=== PATIENT | male | born 1970 | race Caucasian/White ===

== ENCOUNTER 2018-05-12 06:33 | Day surgery (SDC) | payer OTHER ==
[2018-05-11 17:47] VITALS: Ht 175.3 cm; Wt 85.5 kg
[~2018-05-12] VITALS: Ht 175.3 cm; Wt 85.5 kg
[~2018-05-12 06:33] MED LIST: BUPIVACAINE 0.5% 30 ML VIAL INJ ONE; CEPH500C PO; CLOP300T15 PO; DIVA-75 PO; HYDR-3980 PO; LORA1TAB PO; METO10TA3 PO; MORP15TA92 PO; SUMA50TA2 PO
[2018-05-12] MEDS ORDERED: SEVOFLURANE 15 MIN ONE (07:00)
[2018-05-12] MEDS ORDERED: CEFAZOLIN 1 GM INJ ONE (07:00)
[2018-05-12] MEDS ORDERED: ROCURONIUM 50 MG INJ ONE (07:31)
[2018-05-12] MEDS ORDERED: MIDAZOLAM 1 MG/ML 2 ML INJ ONE (07:31)
[2018-05-12] MEDS ORDERED: PROPOFOL 100 ML ONE (07:31)
[2018-05-12] MEDS ORDERED: FENTAnyl 50 MCG/ML VIAL ONE ×2 (07:31→08:35)
[2018-05-12] MEDS ORDERED: LIDOCAINE 100 MG SYRINGE ONE (07:31)
[2018-05-12] MEDS ORDERED: ONDANSETRON 4 MG INJ ONE (07:32)
[2018-05-12] MEDS ORDERED: SUGAMMADEX SODIUM 200 MG/2 ML VIAL IV ONE (07:32)
[2018-05-12] MEDS ORDERED: DEXAMETHASONE 4 MG/ML 5 ML INJ ONE (07:32)
[2018-05-12 07:33] VITALS: BP 112/79; PULSE 60; RESP 18
[2018-05-12] MEDS ORDERED: NEOMYC/POLYMYX/BACIT 30 GM OINT ONE (07:39)
[2018-05-12] MEDS ORDERED: BUPIVACAINE 0.5% (SDV) 30 ML INJ ONE (07:39)
--- NOTE | 2018-05-12 07:42 | PREAC ---
Date/Time of Note Date/Time of Note DATE: 05/12/18 TIME: 07:41 Anesthesia Eval and Record Evaluation Time Pre-Procedure Interview DATE: 05/12/18 TIME: 07:41 Age 47 Sex male NPO: 8 hrs Preoperative diagnosis hydrocele / spermatocele Planned procedure bilateral hydrocelectomy / epididymectomy / left spermatocele Past Medical History Past Medical History: Includes Cardio: HTN Pulm: Smoking Hx Neuro: CVA, Seizure disorder Recreational drugs: Marijuana Surgery & Anesthesia Issues No known issue Meds Anticoagulation: No Beta Maddison within 24 hr: No Reason Beta Maddison not given: Pt. not on B-Maddison Reported Medications Sumatriptan Succinate* (Imitrex*) 50 Mg Tablet, 50 MG PO BID PRN for MIGRAINE HEADACHE, TAB May repeat after 2 hours if needed; MAX 200 mg/24 hours 05/11/18 Metoclopramide Hcl* (Metoclopramide Hcl*) 10 Mg Tablet, 10 MG PO Q6H PRN for NAUSEA AND OR VOMITING, TAB 05/11/18 Lorazepam* (Lorazepam*) 1 Mg Tablet, 1 MG PO HS, #30 TAB 05/11/18 Morphine Sulfate* (Ms Contin*) 15 Mg Tablet.sa, 15 MG PO DAILY, TAB 05/11/18 Hydrocodone/Acetaminophen ([place] 10-325 Tablet) 1 Each Tablet, 1 EACH PO, TAB 05/11/18 Cephalexin* (Cephalexin*) 500 Mg Capsule, 500 MG PO Q6, #28 CAP 05/11/18 Clopidogrel Bisulfate* (Plavix*) 300 Mg Tab, 75 MG PO ONCE, TAB 05/11/18 Divalproex Sodium* (Depakote ER*) 500 Mg Tabsr, 500 MG PO BID, #30 TAB.SA 05/11/18 Current Medications Cefazolin Sodium 50 ml @ 100 mls/hr PRE-OP ONCE IVPB ; Start 05/12/18 at 09:00; Stop 05/12/18 at 09:29 Meds reviewed: Yes Allergies Coded Allergies: tramadol (Unverified Allergy, Unknown, 05/11/18) Allergies Reviewed: Yes Labs/Studies Labs Reviewed: Reviewed by anesthesiologist test: N/A Pre-procedure Exam Last vitals Vital Signs Date Temp Pulse Resp B/P (MAP) Pulse Ox O2 O2 Flow FiO2 Time Delivery Rate 05/12/18 97.0 60 18 112/79 96 Room Air 07:33 (90) Airway: Adequate mouth opening Mallampati: Mallampati I Teeth: Abnormal (chipped top left tooth front) Lung: Normal Heart: Normal ASA Physical Status ASA physical status: 2 Emergency: None Planned Anesthetic General/MAC: ETT Pre-operative Attestations Prior to commencing anesthesia and surgery, the patient was re-evaluated, there was verification of: *The patient's identity *The results of appropriate recent lab work and preoperative vital signs *The above evaluation not changing prior to induction *Anesthetic plan, risk benefits, alternative and complications discussed with patient/family; questions answered; patient/family understands, accepts and wishes to proceed. TRISTEN LEZAMA May 12, 2018 07:42
[2018-05-12] MEDS ORDERED: ONDANSETRON 4 MG INJ IV PRN (08:00)
[2018-05-12] MEDS ORDERED: LABETALOL HCL 20MG INJ IV PRN (08:00)
[2018-05-12] MEDS ORDERED: HYDROmorphONE 1 MG/5 ML IV SYRINGE IV PRN (08:00)
[2018-05-12] MEDS ORDERED: MEPERIDINE 25 MG INJ IV PRN (08:00)
[2018-05-12] MEDS ORDERED: METOCLOPRAMIDE 10 MG INJ IV PRN (08:00)
[2018-05-12] MEDS ORDERED: hydrALAzine 20 MG INJ IV PRN (08:00)
[2018-05-12] MEDS ORDERED: FENTAnyl 50 MCG/ML VIAL IV PRN ×2 (08:00)
[2018-05-12] MEDS ORDERED: PROVENTIL HFA 6.7GM INHALER ONE (08:02)
[2018-05-12] MEDS ORDERED: CEFAZOLIN 1 GM/50 ML (PMX) 50 ML IVPB ONE (09:00)
--- NOTE | 2018-05-12 09:18 | HP ---
DATE OF ADMISSION: 05/12/2018 CHIEF COMPLAINT: Bilateral testicular pain. HISTORY OF PRESENT ILLNESS: This is a 47-year-old male with greater than 5-year history of chronic t esticular pain. He has been on narcotics for this problem. He reports he has reached the end of his rope with his pain; it is very much bothering him. He has seen multiple specialists. He reports he has been given narcotics, anti-inflammatories. He has had multiple courses of antibiotic treatment. However, he continues to have a pain in both testicles. He has undergone a prior workup which has revealed bilateral hydroceles. The hydroceles are septated. Furthermore, there is a concern about a chronic epididymitis and epididymal cysts. Patient reports that on the left side. He has pain along the back of his testis. The pain is worse if he sits for prolonged periods. The pain is also worse if the testis is touched. However, there i s a constant nagging, aching pain in that left testis. On the right side the patient also has right- sided testicular pain. Again, the pain is worse if he sits or if he squeezes his legs or if the test is is touched. On the right side the pain also radiates up toward the inguinal area. Despite being given pain medications, having had anti-inflammatories and antibiotics, he continues to have this emily n. The patient is also narcotic dependent. PAST MEDICAL HISTORY: Anxiety, depression, history of previous TIA in 2015. PAST SURGICAL HISTORY: The patient has had multiple lower extremity, wrist and facial orthopedic surg eries. GENITOURINARY: He has not had any genitourinary surgeries and has not had any intra-abdominal surger ies. ALLERGIES: TRAMADOL. SOCIAL HISTORY: The patient smokes half a pack of cigarettes per day. He reports he does not drink alcohol or use drugs. FAMILY HISTORY: Noncontributory, however he reports that there are scattered people in his family wi th diabetes and hypertension. REVIEW OF SYSTEMS: CONSTITUTIONAL: No fevers, no chills, no change in appetite, weight gain or weight loss. HEENT: No loss of hearing, no ear or sinus pain. No rhinorrhea, nosebleed or sore throat. CARDIOVASCULAR: No chest pain, no shortness of breath or heart palpitations. RESPIRATORY: No cough, no phlegm production or visible hemoptysis. GASTROINTESTINAL: No abdominal pain, no nausea or vomiting, no diarrhea. PSYCHIATRIC: The patient has baseline anxiety and depression. As I was interviewing him today again about his testicles, he became more and more nervous and anxious over his situation. HEMATOLOGIC AND LYMPHATIC: No known bleeding problems. No easy bruising. No lymph node enlargement . Patient reports he may have a blood clotting disorder. NEUROLOGIC: Patient reports he has had numbness and tingling. MEDICATIONS: 1. Depakote. 2. Clonidine. 3. Gabapentin. 4. Ativan. 5. [place]. 6. Plavix (on hold). PHYSICAL EXAMINATION: CONSTITUTIONAL: The patient appears to be in mild to moderate acute distress and appears anxious. GASTROINTESTINAL: Abdomen soft, normal bowel sounds, nondistended, nontender. Hernia exam none note d. Liver and spleen normal. GENITOURINARY: Kidneys, no CVA tenderness. Bladder, no fullness. Penis, no deformity, no lesions, no scarring. Scrotum no lesions, no scarring, no cysts; however scrotum was bilaterally enlarged from the appearance of a hydrocele or fluid collection within the scrotum. Testes descended bilaterally. Testes are moderately tender when the testes are touch bilaterally. The patient jumps and gets mor e tense and says that it hurt, that they are very painful. Bilateral fluid collections around testis also palpated. Epididymis bilaterally are thickened, hard and very tender to palpation. Upon palpa tion of the epididymides, the patient becomes very tense and screams in pain. Urethral meatus normal in size and location. ASSESSMENT: 1. Bilateral hydroceles. 2. Cyst of the epididymis. 3. Bilateral chronic epididymitis. RECOMMENDATIONS: I have spoken with the patient in detail about the natural history biology of testi cular pain and chronic epididymitis/hydroceles. Patient's ultrasound also reveals septations in the hydrocele. The patient understands that his choices include, but not limited to, hydrocelectomy, hyd rocelectomy plus epididymectomy, hydrocelectomy plus epididymal cyst removal or continued pain manage ment, possible neurolysis. I have discussed the pros and cons of these various treatment options wit h the patient. He is requesting to undergo hydrocelectomy and removal of both of his epididymides. He reports that he is fed up with the pain that he has and he would like to undergo this procedure to see if it helps him with his pain. I have also explained to him that if the left epididymis appears to be normal, but only has a spermatocele, then we may elect to perform a spermatocelectomy. Bharat albrecht, the patient is more inclined to, however, the patient would like to have epididymis completely rem blanquita. Plan for patient will be bilateral hydrocelectomy and bilateral epididymectomy. This procedure has b een explained to the patient in detail. Risks and benefits have been discussed. He understands the risks include but not limited to infection, bleeding, damage to adjacent structures, heart problems, lung problems, possibility of need for further surgery, DVT, PE, KS, CVA, nonresolution of symptoms, recurrence of symptoms, need for other treatments, need for other surgeries, continued testicular emily n, worsening of his testicular pain, testicular atrophy, loss of bilateral testes, infertility. The patient also understands that he will no longer have any sperm. He reports that he does not want to have any more children at this point. He also understands the scrotum will become very swollen and i ndurated for about 8 weeks, and he anticipates that. All the patient's questions have been answered, no guarantees given. The patient would like to proceed. Dictated By: DAYTON MCCORMACK MD, SR/MINAL Conf#: [id number] DID#: [id number]
[2018-05-12 10:15] VITALS: BP 146/73; PULSE 83; RESP 17
[2018-05-12] MEDS ORDERED: BUPIVACAINE 0.5% 30 ML VIAL INJ ONE (10:15)
--- NOTE | 2018-05-12 10:19 | PAC ---
Date/Time of Note Date/Time of Note DATE: 05/12/18 TIME: 10:19 Post-Anesthesia Notes Post-Anesthesia Note Last documented vital signs Vital Signs Date Temp Pulse Resp B/P (MAP) Pulse Ox O2 O2 Flow FiO2 Time Delivery Rate 05/12/18 97.0 60 18 112/79 96 Room Air 07:33 (90) Activity: WNL Respiratory function: WNL Cardiovascular function: WNL Mental status: Baseline Pain reasonably controlled: Yes Hydration appropriate: Yes Nausea/Vomiting absent: Yes TRISTEN LEZAMA May 12, 2018 10:19
--- NOTE | 2018-05-12 10:19 | SIPON ---
Date/Time of Note Date/Time of Note DATE: 05/12/18 TIME: 10:17 Operative Report Preoperative Diagnosis Bilateral hydroceles Bilateral chronic epididymitis Bilateral testis pain Postoperative Diagnosis Same Operation/Procedure Performed Bilateral hydrocelectomy Bilateral epididymectomy Surgeon see signature line congressional assistant none Anesthesia: general Estimated blood loss: 0 - 10 ml's Transfusion Required none Specimen Right and Left epididymis + Vas Right and left hydrocele sacs Grafts/Implants none Complications none DAYTON MCCORMACK May 12, 2018 10:19
--- NOTE | 2018-05-12 10:21 | PDOCDIS ---
Discharge Instructions DIAGNOSIS Discharge Diagnosis bilateral chronic epididymitis and bilateral hydroceles CONDITION [id number] Patient Condition: Wmoho0d Good HOME CARE INSTRUCTIONS: [id number] Diet Instructions: Ynjib0t Regular ACTIVITY: [id number] Activity Restrictions: [id number] Slowly Increase Activity No Sexual Activity Do not Drive [id number] Bathing Restrictions: [id number] Shower Otiag8Ln Activity Restrictions [id number] Ok to shower in two days and Comment: get wound wet DAYTON MCCORMACK May 12, 2018 10:21
[2018-05-12 10:26] VITALS: BP 141/82; PULSE 70; RESP 17
[2018-05-12] MEDS: HYDROmorphONE 1 MG/5 ML IV SYRINGE IV PRN ×3 (10:29→11:50)
[2018-05-12 10:31] VITALS: BP 146/73; PULSE 76; RESP 17
[2018-05-12 11:00] VITALS: BP 136/73; PULSE 75; RESP 16
--- NOTE | 2018-05-12 11:38 | OPR ---
DATE OF OPERATION: 05/12/2018 SURGEON: Dayton Hidalgo MD COLLECTION TECHNICIAN: None. PREOPERATIVE DIAGNOSES: 1. Bilateral chronic epididymitis. 2. Bilateral hydroceles. 3. Bilateral testicular pain. POSTOPERATIVE DIAGNOSES: 1. Bilateral chronic epididymitis. 2. Bilateral hydroceles. 3. Bilateral testicular pain. OPERATION PERFORMED: 1. Bilateral hydrocelectomy. 2. Bilateral epididymectomy. INDICATIONS FOR PROCEDURE: This patient has a history of chronic bilateral testicular pain. He is s cheduled to undergo the above said procedure. The procedure has been explained to the patient in det ail. Risk and benefits have been discussed. All of his questions have been answered, no guarantees given. He would like to proceed. FINDINGS: Bilateral hydroceles were encountered on the left side, the patient had a septated hydroce le. The epididymides bilaterally were thickened and slightly enlarged. The bilateral epididymides w ere removed completely with a tail of vas deferens. Extreme care was taken to maintain the blood sup ply to bilateral testes. PROCEDURE IN DETAIL: The patient was brought to the operating room, underwent general anesthesia. H e was kept in a supine position. Abdomen, perineum and genitalia were prepped and draped in usual st erile fashion. A cord block was initially given with 5 mL of 0.5% Marcaine in each spermatic cord at the inguinal canal. A longitudinal incision was made along the median raphe. Dissection was angela d down onto the dartos layer. The right dartos was opened longitudinally. Dissection was then joni ed down onto the hydrocele sac. The right hydrocele sac was identified, it was opened and clear flui d was drained, about 75-100 mL of fluid was drained from the right hydrocele. The testis was deliver ed. The hydrocele sac was then further opened. The testicle was examined. The testis appeared to b e normal. The right epididymis was then palpated. It was thickened and slightly enlarged. The bloo d supply to the testicle was also identified. At this point, the tunica over the epididymis was open ed near the head of the epididymis. Dissection was then carried down onto the junction of the epidid ymis to the testis. This was carefully dissected. The head of the epididymis was then was then diss ected off the testicle. Decision was then carried to the mid portion of the epididymis. The epididy mis was further lifted off the testis. The edges of the epididymis were carefully dissected away fro m the blood supply to the testis. At all times, the blood supply was kept in view. Blood supply was kept intact as the head and the mid portion of the body of the epididymis were dissected off the mes enteric supply of the testis. Dissection was then carried toward the lower pole of the epididymis. Once this was done, the vas deferens was palpated. The tissues over the vas deferens were then opene d through the hydrocele sac. The vas deferens was brought up and skeletonized. Next, 2 clamps were placed on the vas deferens. The vas deferens was then divided. The distal portion of the vas was th en cauterized. The vas was then suture ligated using a 3-0 Vicryl suture. Another 3-0 suture was al so placed around the vas. This obtained excellent hemostasis. At this point, the proximal portion of the vas which would connect to the epididymis was identified. The vas was then further dissected through the hydrocele sac toward the epididymis. As this was don e, the paul-vas tissues as well as the paul-epididymal tissues were carefully dissected again taking care not to injure the blood supply to the testis. At this point, residual attachments of the epidid ymis were taken off the testis. The epididymis and a portion of the vas deferens were then completel y excised off the right testis. This was sent to pathology as right epididymis and vas deferens en b loc. Attention was then paid to the hydrocele sac. The excess hydrocele sac was then excised, again takin g care not to injure the blood supply to the testis. This was sent to pathology as right hydrocele s ac. Next, the remainder of the hydrocele sac was everted onto itself. The edges were then sutured a gainst each other using a 3-0 Vicryl interrupted sutures. Care was taken not to strangulate the bloo d supply to the testis. Testis was reexamined and appeared to be have excellent blood supply. It wa s pink. The tunica albuginea was intact. The right hemiscrotum and the contents and the dartos laye r were all irrigated with saline. The wound was carefully examined. The testis as well as the sperm atic cord were carefully examined. There was no evidence of bleeding. The testis was then placed in its normal anatomic position within the scrotum. The dartos layer was then closed using 3-0 Vicryl running suture. Attention was then paid to the left side. The exact same procedure was then performed on the left si de. The dartos layer was opened longitudinally. Hydrocele sac was opened. On the left side, the hy drocele sac was multi-septated and the initial hydrocele sac was opened and about 75 to 100 mL of guevara ar yellow fluid was drained. Next, a secondary hydrocele sac was opened and another 25 mL were drain ed from this area. The 2 sacs were then connected to each other. At this point, the hydrocele sac h ad been well opened enough to be able to deliver the testis. The left testis was examined. It appeared to be normal. The left epididymis also appeared to be thi ckened and slightly enlarged. The head of the epididymis was then carefully dissected off the testic le. The tunica over the epididymis was opened. The epididymis was dissected off the spermatic cord, taking care not to injure the blood supply to the left testis. Dissection was then carried towards the mid portion of the epididymis. was lifted off the testis in this fashion. Next, the vas de ferens was dissected and was isolated, skeletonized. The vas deferens was clamped. The vas was then divided. The lumen was cauterized and the stump was suture ligated using 3-0 Vicryl suture as well as a free 3-0 suture. The distal vas was then dissected toward the lower pole of the epididymis. Di ssection was carried in this fashion until the connection of the vas to the epididymis was identified . The epididymis was then further dissected off the testis. The attachment of the epididymis and th e lower pole was pedicalized. This was clamped and the epididymis was divided off the testis. The a ttached portion was then sutured with a 3-0 Vicryl on the testis side. This was also performed on th e right side at the point of attachment of the epididymis to the testis. At this point, the epididym is had been completely removed. This was sent to pathology as left epididymis and vas deferens en b loc. Excess hydrocele sac was then excised. The septated portion was also excised. This was sent to path ology as left hydrocele sac. The remainder of the sac was then everted onto itself and the edges wer e sutured using 3-0 Vicryl interrupted sutures, taking care not to strangulate the blood supply to th e testis. Once this was done, the testis as well as the left hemiscrotum and the contents and the da rtos were irrigated with saline. Excellent hemostasis had been obtained. The left testis was placed back in its normal anatomic position within the scrotum. Dartos layer was then closed with 3-0 Vicr yl running suture. The dartos was further reapproximated using another layer of 3-0 Vicryl running suture between the ri ght and left sides of the scrotum. Next, the subcuticular layer of the scrotum was reapproximated us ing 3-0 Vicryl running suture. The skin was then closed with 3-0 Vicryl Rapide running skin suture. Antibiotic ointment was applied. Telfa pad was applied. fluffs and scrotal support was applied. P yaron was then awakened, extubated, and taken to recovery room in stable condition. Prior to closur e of the wound, the wound was further injected with Marcaine, total of 30 mL of 0.5% Marcaine had bee n used. Once patient was awake, he was taken to recovery room in stable condition. POSTOPERATIVE CONDITION: Stable. COMPLICATIONS: None. BLOOD LOSS: Less than 10 mL. BLOOD ADMINISTERED: None. SPECIMENS SENT TO LAB: Right and left epididymis of the vas deferens and right and left hydrocele sa simms Dictated By: DAYTON HIDALGO MD, SR/MINAL Conf#: [id number] DID#: [id number]
--- NOTE | 2018-05-13 02:25 | DS ---
DATE OF ADMISSION: 05/12/2018 DATE OF DISCHARGE: 05/12/2018 ADMITTING DIAGNOSIS: Bilateral testicular pain. DISCHARGE DIAGNOSES: 1. Bilateral testicular pain. 2. Bilateral hydroceles. 3. Bilateral chronic epididymitis. HOSPITAL COURSE: The patient was admitted to the hospital and underwent bilateral hydrocelectomy and bilateral epididymectomy. He tolerated the procedure well. Once the patient was stable, tolerating his diet, remaining afebrile and pain was well controlled, he was discharged home. DISCHARGE INSTRUCTIONS: Activity as tolerated. No heavy lifting. The patient may shower. Follow u p in 1 to 2 weeks. The patient was instructed not to have sexual activity until cleared. MEDICATIONS: Percocet. Dictated By: DAYTON MCCORMACK MD SR/NTS Conf#: [id number] DID#: [id number]
== END 2018-05-12 12:23 | disposition home or self-care (01) ==
LOC: SDS 06:33
PROVIDERS: ATTEND Surgery Surgical Oncology
DX: N45.1 Epididymitis (principal); E78.5 Hyperlipidemia, unspecified; G40.909 Epilepsy, unspecified, not intractable, without status epilepticus; I10 Essential (primary) hypertension; F17.210 Nicotine dependence, cigarettes, uncomplicated; Z86.73 Personal history of transient ischemic attack (TIA), and cerebral infarction without residual deficits; Z79.82 Long term (current) use of aspirin
CPT/HCPCS: 54861; 55041; J0690; J1100; J1170; J2001; J2250; J2405; J3010; Z7610; 88302